=== PATIENT | male | born 1970 | race Caucasian/White ===

== ENCOUNTER 2018-09-07 15:34 | Emergency (ER) | payer OTHER ==
[2018-09-07] MEDS ORDERED: Lidocaine 2% Jelly 10 ML Urojet MUCMEM ONE ×2 (16:03→16:13)
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
[2018-09-07 17:42] VITALS: BP 122/71
[2018-09-07] MEDS ORDERED: Diltiazem 50 MG/10 ML SDV IVPUSH ONE (18:15)
== END 2018-09-07 17:40 | disposition home or self-care (01) ==
LOC: JD.ED 15:34
DX: N41.9 Inflammatory disease of prostate, unspecified (principal); N31.9 Neuromuscular dysfunction of bladder, unspecified; R33.9 Retention of urine, unspecified; Z79.899 Other long term (current) drug therapy
CPT/HCPCS: 81001; 87086; 87088; 87184; 87186; 99283; 99284